=== PATIENT | female | born 1980 | race Caucasian/White ===

== ENCOUNTER → 2021-03-10 | Outpatient (CLI) | payer OTHER ==
[~2021-03-10] MED LIST: MEDROL4 MG PO; ZITHROMAX500 MG PO
== END ==
LOC: KOH-I 03-03 09:00
DX: R91.1 Solitary pulmonary nodule (principal); R91.8 Other nonspecific abnormal finding of lung field
CPT/HCPCS: 71250

== ENCOUNTER 2021-06-25 15:53 | Emergency (ER) | payer OTHER ==
[~2021-06-25] VITALS: Ht 170.2 cm; Wt 67.1 kg
== END 2021-06-25 21:15 | disposition home or self-care (01) ==
LOC: ER1 15:53
DX: T63.441A Toxic effect of venom of bees, accidental (unintentional), initial encounter (principal); Z23 Encounter for immunization; Y92.009 Unspecified place in unspecified non-institutional (private) residence as the place of occurrence of the external cause
CPT/HCPCS: 90375; 90376; 90675; 96372; 99283

== ENCOUNTER 2021-06-28 13:34 | Emergency (ER) | payer OTHER | END 2021-06-28 15:50 | disposition home or self-care (01) | LOC: ER1 13:34 | DX: T14.8XXA Other injury of unspecified body region, initial encounter (principal); W55.81XA Bitten by other mammals, initial encounter | CPT/HCPCS: 90675; 96372; 99283 ==

== ENCOUNTER 2021-07-02 07:52 | Emergency (ER) | payer OTHER | END 2021-07-02 08:30 | disposition home or self-care (01) | LOC: ER1 07:52 | DX: Z23 Encounter for immunization (principal) | CPT/HCPCS: 90675; 96372; 99281 ==

== ENCOUNTER 2021-07-09 08:28 | Emergency (ER) | payer OTHER ==
[2021-07-09] MEDS ORDERED: ZOFRAN ODT 4 MG4 MG SL (08:51)
== END 2021-07-09 09:51 | disposition home or self-care (01) ==
LOC: ER1 08:28
DX: Z23 Encounter for immunization (principal); Z88.8 Allergy status to other drugs, medicaments and biological substances
CPT/HCPCS: 90675